=== PATIENT | male | born 1940 | race African-American/Black ===

== ENCOUNTER 2021-07-02 20:14 | Inpatient (IN) | payer MEDICAID ==
[~2021-07-02] VITALS: Ht 188 cm; Wt 117.9 kg
[2021-07-02] MEDS ORDERED: MORPHINE SULFATE 4 MG/ML CPJ (NOT FOR IM USE) IV STA (21:07)
[2021-07-02 21:23] LABS: BASOPHILS % 0.8 % (0.0-2.0); EOSINOPHILS % 1.2 % (0.0-5.0); HEMATOCRIT. 35.6 % (42.0-52.0); HEMOGLOBIN. 11.7 g/dL (14.0-18.0); LYMPHOCYTES % 20.5 % (20.0-50.0); MEAN CORPUSCULAR HEMOGLOBIN 26.9 pg (28.0-32.0); MEAN CORPUSCULAR VOLUME 81.7 fL (80.0-94.0); MEAN PLATELET VOLUME 8.1 fl (7.4-10.4); MONOCYTES % 8.4 % (2.0-8.0); NEUTROPHILS % 69.1 % (40.0-76.0); PLATELET 216 x1000/uL (130-400); RED BLOOD CELL COUNT 4.35 mill/uL (4.7-6.1); RED CELL DISTRIBUTION WIDTH 17.7 % (11.6-14.6)
[2021-07-02 21:31] LABS: CHLORIDE 108 mEq/L (98-107)
[2021-07-02] MEDS ORDERED: CLONIDINE 0.1MG TABLET PO PRN (23:30)
[2021-07-02] MEDS ORDERED: LORAZEPAM 2MG/ML CPJ IV PRN (23:30)
[2021-07-02] MEDS ORDERED: HYDRALAZINE 20MG/ML VIAL IV PRN (23:30)
[2021-07-02] MEDS ORDERED: DIPHENHYDRAMINE 50MG/ML VIAL IV PRN (23:30)
[2021-07-02] MEDS ORDERED: ONDANSETRON HCL 4MG/2ML INJ IV PRN (23:30)
[2021-07-02] MEDS ORDERED: ACETAMINOPHEN 325MG TABLET PO PRN (23:30)
[2021-07-02] MEDS ORDERED: DOCUSATE SODIUM 100MG CAPSULE PO PRN (23:30)
[2021-07-02] MEDS ORDERED: IPRATROPIUM/ALBUTEROL 0.5-3(2.5)MG/3ML NEB HHN PRN (23:30)
[2021-07-02] MEDS ORDERED: HYDROCODONE/ACETAMINOPHEN 5/325MG TABLET PO PRN (23:30)
[2021-07-02] MEDS ORDERED: MAGNESIUM/ALUMINUM HYDROXIDE/SIMETHICONE 30ML UDC PO PRN (23:30)
[2021-07-02] MEDS ORDERED: GUAIFENESIN 200MG/10ML SUGAR FREE UDC PO PRN (23:30)
[2021-07-02] MEDS ORDERED: NALOXONE HCL 0.4MG/ML VIAL IV PRN (23:45)
[2021-07-03 02:30] VITALS: BP 121/63
[2021-07-03] MEDS: SODIUM CHLORIDE 0.9% INJ 3ML FLUSH IVF SCH ×3 (02:52→21:32)
[2021-07-03] MEDS: MORPHINE SULFATE 2 MG/ML CPJ (NOT FOR IM USE) IV PRN ×4 (02:52→21:33)
[2021-07-03 03:21] VITALS: BP 121/63
[2021-07-03] MEDS ORDERED: TAMS-11 PO (03:26)
[2021-07-03] MEDS ORDERED: HYDR-4009 MT (03:26)
[2021-07-03] MEDS ORDERED: LEVO50TA PO (03:26)
[2021-07-03] MEDS ORDERED: GABA-532 PO (03:26)
[2021-07-03 06:41] LABS: BASOPHILS % 0.6 % (0.0-2.0); EOSINOPHILS % 1.6 % (0.0-5.0); HEMATOCRIT. 33.3 % (42.0-52.0); LYMPHOCYTES % 24.5 % (20.0-50.0); MEAN CORPUSCULAR HEMOGLOBIN 27.3 pg (28.0-32.0); MEAN CORPUSCULAR VOLUME 82.3 fL (80.0-94.0); MEAN PLATELET VOLUME 8.5 fl (7.4-10.4); MONOCYTES % 10.3 % (2.0-8.0); PLATELET 191 x1000/uL (130-400); RED BLOOD CELL COUNT 4.04 mill/uL (4.7-6.1); RED CELL DISTRIBUTION WIDTH 17.6 % (11.6-14.6)
[2021-07-03 06:43] LABS: CHLORIDE 110 mEq/L (98-107)
[2021-07-03 06:58] LABS: CREATINE KINASE 144 IU/L (39-308)
[2021-07-03 07:01] LABS: CREATINE KINASE MB FRACTION 1.1 ng/mL (0.5-3.6)
[2021-07-03 08:00] VITALS: BP 126/74
[2021-07-03] MEDS: LEVOTHYROXINE SODIUM 50MCG TABLET PO SCH (08:53)
[2021-07-03] MEDS: TAMSULOSIN HCL 0.4MG SR CAPSULE PO SCH (08:53)
[2021-07-03] MEDS: ENOXAPARIN 30MG/0.3ML SYR SUBCUT SCH ×2 (08:53→21:32)
[2021-07-03] MEDS: ASPIRIN 81MG EC TABLET PO SCH (11:41)
[2021-07-03] MEDS: METOPROLOL TARTRATE 25MG TABLET PO SCH ×2 (11:43→21:32)
[2021-07-03 12:00] VITALS: BP 130/68
[2021-07-03] MEDS ORDERED: NITROGLYCERIN 0.4MG TABLET SL SL PRN (14:00)
[2021-07-03 16:00] VITALS: BP 119/68
[2021-07-03] MEDS ORDERED: REGADENOSON 0.4 MG/5 ML IV NR (16:00)
[2021-07-03 16:47] LABS: CREATINE KINASE 118 IU/L (39-308)
[2021-07-03 16:48] LABS: CREATINE KINASE MB FRACTION < 1.0 ng/mL (0.5-3.6)
[2021-07-03 20:00] VITALS: BP 110/68
[2021-07-03] MEDS ORDERED: ATORVASTATIN CALCIUM 40MG TABLET PO SCH (21:00)
[2021-07-04] VITALS: BP 135/73
[2021-07-04 01:15] LABS: CLARITY URINE CLEAR (CLEAR); COLOR URINE YELLOW (YELLOW); KETONES URINE NEGATIVE (NEGATIVE); LEUKOCYTE ESTERASE URINE NEGATIVE (NEGATIVE); NITRITE URINE NEGATIVE (NEGATIVE); OCCULT BLOOD URINE NEGATIVE (NEGATIVE); PH URINE 7.5 (4.5-8.0); PROTEIN URINE NEGATIVE (NEGATIVE); UROBILINOGEN URINE 0.2 E.U./dL (0.2-1.0)
[2021-07-04 01:24] LABS: *AMPHETAMINES SCREEN URINE NEGATIVE (NEGATIVE); *BARBITURATES SCREEN URINE NEGATIVE (NEGATIVE); *BENZODIAZEPINES SCREEN URINE NEGATIVE (NEGATIVE); *COCAINE SCREEN URINE PRESUMTIVE POSITIVE (NEGATIVE); METHADONE URINE SCREEN NEGATIVE (NEGATIVE); OPIATES URINE SCREEN PRESUMTIVE POSITIVE (NEGATIVE)
[2021-07-04 01:25] LABS: CANNABINOID URINE SCREEN NEGATIVE (NEGATIVE); PHENCYCLIDINE URINE SCREEN PRESUMTIVE POSITIVE (NEGATIVE)
[2021-07-04 04:00] VITALS: BP 132/78
[2021-07-04] MEDS: MORPHINE SULFATE 2 MG/ML CPJ (NOT FOR IM USE) IV PRN ×3 (04:38→17:45)
[2021-07-04] MEDS: SODIUM CHLORIDE 0.9% INJ 3ML FLUSH IVF SCH ×2 (06:00→13:47)
[2021-07-04] MEDS: LEVOTHYROXINE SODIUM 50MCG TABLET PO SCH (06:26)
[2021-07-04 08:00] VITALS: BP 126/73
[2021-07-04] MEDS: TAMSULOSIN HCL 0.4MG SR CAPSULE PO SCH ×2 (09:00→13:47)
[2021-07-04] MEDS: METOPROLOL TARTRATE 25MG TABLET PO SCH (09:00)
[2021-07-04] MEDS: ENOXAPARIN 30MG/0.3ML SYR SUBCUT SCH (10:06)
[2021-07-04] MEDS ORDERED: CAFFEINE CITRATE 20MG/ML 3ML VIAL IV ONE (10:58)
[2021-07-04] MEDS ORDERED: REGADENOSON 0.4 MG/5 ML IV ONE (10:58)
[2021-07-04 12:00] VITALS: BP 135/55
[2021-07-04] MEDS: ASPIRIN 81MG EC TABLET PO SCH (13:47)
[2021-07-04 16:00] VITALS: BP 120/72
[2021-07-04 18:46] VITALS: BP 120/72
== END 2021-07-04 21:00 | disposition home or self-care (01) | DRG 48 ==
LOC: ER 20:14 → 6WST 23:17 → EDBEDREQ 23:19 → EDBEDREQTM 23:19 → ENRESERV 23:57
PROVIDERS: ADMIT Internal Medicine; ATTEND Internal Medicine
DX: G90.8 Other disorders of autonomic nervous system (principal); E46 Unspecified protein-calorie malnutrition; M94.0 Chondrocostal junction syndrome [Tietze]; D64.9 Anemia, unspecified; M54.2 Cervicalgia; E03.9 Hypothyroidism, unspecified; G62.9 Polyneuropathy, unspecified; I10 Essential (primary) hypertension; Z20.822 Contact with and (suspected) exposure to COVID-19; N40.0 Benign prostatic hyperplasia without lower urinary tract symptoms; F17.210 Nicotine dependence, cigarettes, uncomplicated; M54.12 Radiculopathy, cervical region; Z68.33 Body mass index [BMI] 33.0-33.9, adult; W19.XXXA Unspecified fall, initial encounter
CPT/HCPCS: 36415; 71045; 72040; 72070; 72141; 78452; 80053; 80305; 81003; 82550; 82553; 83880; 84443; 84484; 85025; 87426; 93005; 93017; 93306; 93970; 99285; A9500; J0706; J1650; J2060; J2270; J2785